=== PATIENT | male | born 1960 | race African-American/Black ===

== ENCOUNTER 2017-04-27 09:43 | Inpatient (IN) | payer OTHER ==
[~2017-04-27] VITALS: Ht 165.1 cm; Wt 95.2 kg
[2017-04-27] VITALS (13 sets, daily range): BP systolic 66–242; BP diastolic 38–163
--- NOTE | ~2017-04-27 | EKG ---
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 : 1960 Requested By: Lc Garcia Order Number: [id number] MD: Geovanny Napoles Measurements Intervals [place] Rate: 122 P: 52 [place]: 166 QRS: 36 QRSD: 76 T: 22 QT: 312 QTc: 445 Interpretive Statements Sinus tachycardia Otherwise no significant abnormality Compared to ECG 08/09/2016 10:22:02 No significant changes Electronically Signed On 04-27-2017 18:26:51 VIDEO TAPE TRANSFERRER by Geovanny Napoles [email or web address] <ELECTRONICALLY SIGNED> By: Geovanny Napoles MD, [facility] 04/27/17 1826 D: 01940 0 Geovanny Napoles MD, FACC /EPI
--- NOTE | ~2017-04-27 | EKG ---
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 KEYES : 1960 Requested By: Kalin Farias Order Number: [id number] MD: Geovanny Napoles Measurements Intervals [place] Rate: 126 P: 45 [place]: 160 QRS: 80 QRSD: 72 T: 26 QT: 295 QTc: 428 Interpretive Statements Sinus tachycardia Poor R wave progression Compared to ECG 08/09/2016 10:22:02 Premature ventricular complexes are no longer present Electronically Signed On 04-27-2017 18:29:25 MANAGEMENT [employer] by Geovanny Napoles [email or web address] <ELECTRONICALLY SIGNED> By: Geovanny Napoles MD, [facility] 04/27/17 1829 1307 06 Geovanny Napoles MD, [facility] /EPI
--- NOTE | ~2017-04-27 | EKG ---
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 04/27/17 1827 1018 1018 Geovanny Napoles MD, [facility] /EPI
--- NOTE | ~2017-04-27 | EKG ---
[address] [place] [address] ELECTROCARDIOGRAM REPORT Name: YEHUDA CHEUNG Room #: 205-P ADM IN M.R.#: [id number] Admission: 04/27/17 Attend Phys: Kalin Farias DO Discharge: Date of : 60 Report #: [id number] THIS REPORT FOR: //name// [facility] Test Date: 2017-04-27 Test Time: 16:02:00 Pat Name: YEHUDA CHEUNG Department: Room: 205 P Gender: M Professor Of Family Medicine: Wandy LOPEZ : 1960 Requested By: Esme Purcell Order Number: [id number] MD: Geovanny Napoles Measurements Intervals [place] Rate: 131 P: 5 [place]: 144 QRS: 90 QRSD: 66 T: 5 QT: 298 QTc: 440 Interpretive Statements Sinus tachycardia Abnormal R-wave progression, late transition Compared to ECG 08/09/2016 10:22:02 No significant changes Electronically Signed On 04-27-2017 18:29:52 SLURRY BLENDER by Geovanny Napoles [email or web address] <ELECTRONICALLY SIGNED> By: Geovanny Napoles MD, [facility] 04/27/17 1829 160 160 Geovanny Napoles MD, [facility] /EPI
--- NOTE | ~2017-04-27 | 2DMMODE ---
[facility] [address] [place] [address] 2 D/M-MODE ECHOCARDIOGRAM Name: YEHUDA CHEUNG Room #: 205-P ADM IN M.R.#: [id number] Admission: 04/27/17 Attend Phys: Kalin Farias, Discharge: Date of : 60 Date of Service: 04/27/17 1503 Report #: [id number] THIS REPORT FOR: //name// APPROVED REPORT Study performed: 04/27/2017 13:07:07 EXAM: Comprehensive 2D, Doppler, and color-flow Echocardiogram Patient Location: Echo lab Room #: 205 Status: routine BSA: 2.04 HR: 122 bpm BP: 182/100 mmHg Rhythm: Tachycardia Other Information Study Quality: Adequate Indications Chest Pain Hypertension/HDD 2D Dimensions RVDd: 38.62 mm LVEF(%): 78.16 (>50%) IVSd: 12.48 (7-11mm) LVOT Diam: 20.39 (18-24mm) LVDd: 35.91 mm PWd: 13.20 (7-11mm) Ascending Ao: 34.17 (22-36mm) LVDs: 19.43 (25-40mm) Aortic Root: 31.22 mm Lindsay's LVEF: 78.16 % Volumes Left Atrial Volume (Systole) Single Plane 4CH: 30.02 mL Single Plane 2CH: 23.74 mL LA ESV Index: 15.00 mL/m2 Aortic Valve AoV Peak Khari.: 1.56 m/s AO Peak Gr.: 9.67 mmHg LVOT Max P.60 mmHg LVOT Max V: 1.28 m/s DEVYN Vmax: 2.70 cm2 Pulmonary Valve PV Peak Khari.: 1.21 m/s PV Peak Gr.: 5.90 mmHg [facility] [email or web address] [address] 2 D/M-MODE ECHOCARDIOGRAM Name: YEHUDA CHEUNG Room #: 205- ADM IN M.R.#: [id number] Admission: 04/27/17 Attend Phys: Kalin Farias, Discharge: Date of : 60 Date of Service: 04/27/17 1503 Report #: [id number] Left Ventricle The left ventricle is normal size. There is normal LV segmental wall motion. Mild concentric left ventricular hypertrophy. Left ventricular systolic function is hyperdynamic. Moderate left ventricle gradient (40mmHg) likely due to hyperdynamic function. LVEF is >70%. This study is not technically sufficient to allow evaluation of the LV diastolic function. Right Ventricle The right ventricle is normal size. The right ventricular systolic function is normal. Atria The left atrium size is normal. The right atrium size is normal. Aortic Valve Aortic valve is calcified. No aortic regurgitation is present. There is no aortic valvular stenosis. Mitral Valve The mitral valve is normal in structure. There is no mitral valve regurgitation noted. No evidence of mitral valve stenosis. Tricuspid Valve The tricuspid valve is normal in structure. Unable to assess the PAP due to little to no tricuspid regurgitation. Pulmonic Valve Pulmonic valve is not well visualized. There is no pulmonic valvular regurgitation. Great Vessels The aortic root is normal in size. IVC is normal in size and collapses >50% with inspiration. Pericardium There is no pericardial effusion. <Conclusion> Left ventricular systolic function is hyperdynamic. Moderate left ventricle gradient (40mmHg) likely due to hyperdynamic function, underfilled ventricle. There is normal LV segmental wall motion. LVEF >70%. Aortic valve is calcified. No aortic valvular stenosis or [address] [address] 2 D/M-MODE ECHOCARDIOGRAM Name: YEHUDA CHEUNG Room #: 205-P [facility]#: [id number] Admission: 04/27/17 Attend Phys: Kalin Farias, Discharge: Date of : 60 Date of Service: 04/27/17 1503 Report #: [id number] insufficiency. The mitral valve is normal in structure. No mitral valve regurgitation noted. Pulmonary artery pressure could not be reliably ascertained There is no pericardial effusion. <ELECTRONICALLY SIGNED> By: Geovanny Napoles MD, [facility] 04/27/17 1503 1503 1503 Geovanny Napoles MD, [facility] /INF
[~2017-04-27 09:43] MED LIST: NORVASC10 MG PO; ZESTRIL40 MG PO
[2017-04-27 10:01] LABS: ABSOLUTE NEUTROPHILS 2.2 thou/uL (1.4-8.2); BASOPHILS 0.4 % (0.0-2.0); EOSINOPHILS 2.3 % (0.0-3.0); HEMATOCRIT 39.8 % (42.0-52.0); HEMOGLOBIN 13.2 gm/dL (14.0-18.0); LYMPHOCYTES 33.2 % (24.0-44.0); MCH 32.6 pg (26.0-34.0); MCHC 33.3 g/dL (28.0-37.0); MCV 97.9 fL (80.0-100.0); MONOCYTES 10.7 % (1.0-8.0); PLATELET COUNT 160 thou/uL (150-400); POLYS 53.4 % (36.0-66.0); RBC 4.06 mil/uL (4.50-6.00); RDW 15.8 % (10.5-14.5); WBC 4.1 thou/uL (4.0-11.0)
[2017-04-27 10:07] LABS: CALCIUM 9.3 mg/dL (8.5-10.1); CREATININE 1.5 mg/dL (0.7-1.3); POTASSIUM 4.1 mmol/L (3.5-5.1)
[2017-04-27 10:14] LABS: D-DIMER 0.37 ug/mLFEU (0.19-0.50); PROTIME 10.4 Seconds (9.3-11.4)
[2017-04-27 10:16] LABS: ALBUMIN 4.3 g/dL (3.4-5.0); TOTAL BILIRUBIN 0.5 mg/dL (<0.1-1.0); TOTAL PROTEIN 8.1 g/dL (6.4-8.2); TROPONIN-I 0.18 ng/mL (<0.06)
[2017-04-27 11:33] LABS: URINE BILIRUBIN NEGATIVE (Negative); URINE BLOOD NEGATIVE (Negative); URINE CLARITY CLEAR; URINE COLOR YELLOW; URINE GLUCOSE-RANDOM* NEGATIVE (Negative); URINE KETONES NEGATIVE (Negative); URINE LEUKOCYTES NEGATIVE (Negative); URINE NITRITE NEGATIVE (Negative); URINE PROTEIN (DIPSTICK) 2+ (Negative); URINE SPECIFIC GRAVITY >= 1.030 (1.005-1.035); URINE UROBILINOGEN 0.2 E.U./dl (0.2-1.0)
[2017-04-27 11:51] LABS: SQUAMOUS 0-3 Few /LPF (0-3); URINE RBC 0-2 Rare /HPF (0-2); URINE WBC 0-5 Rare /HPF (0-5)
[2017-04-27 11:52] LABS: CRYSTALS None Seen /LPF (None Seen); HYALINE CASTS 0-3 Few /LPF (None Seen)
[2017-04-27 11:56] LABS: BACTERIA 1-9 Few /HPF (None Seen)
[2017-04-27 12:58] LABS: PHOSPHORUS 2.9 mg/dL (2.5-4.9)
[2017-04-27 13:00] LABS: MAGNESIUM 0.9 mg/dL (1.8-2.4)
[2017-04-27 15:59] LABS: CHOLESTEROL 230 mg/dL (<200); HDL CHOLESTEROL 115 mg/dL (>40); LDL CHOLESTEROL 103 mg/dL (<100); TRIGLYCERIDE 62 mg/dL (<150); VLDL 12 mg/dL (<40)
[2017-04-27 17:07] LABS: AMP/METHAMP Negative (Negative); BARBITURATES Negative (Negative); BENZODIAZEPINES Negative (Negative); COCAINE Negative (Negative); METHADONE Negative (Negative); OPIATES Negative (Negative); PCP Negative (Negative)
[2017-04-28] VITALS: BP 135/92
[2017-04-28 03:35] LABS: CHOLESTEROL 207 mg/dL (<200); HDL CHOLESTEROL 104 mg/dL (>40); LDL CHOLESTEROL 92 mg/dL (<100); TRIGLYCERIDE 59 mg/dL (<150); VLDL 12 mg/dL (<40)
[2017-04-28 03:49] LABS: SERUM ASSESSMENT Clear
[2017-04-28 03:58] VITALS: BP 155/103
[2017-04-28 04:59] VITALS: BP 142/96
[2017-04-28 05:12] LABS: GLYCOHEMOGLOBIN (HGB A1C) 5.4 % (4.8-5.6)
[2017-04-28 08:03] VITALS: BP 155/109
[2017-04-28 09:24] VITALS: BP 155/109
== END 2017-04-28 10:15 | disposition home or self-care (01) | DRG 281 ==
LOC: ER 09:43 → 2N 10:48 → ENTRNSPT 04-28 09:51 → EDTRNSPTSTS 04-28 09:53 → 2N 04-28 10:15
PROVIDERS: Family Medicine; Nurse Practitioner; Nurse Practitioner Adult Health; Physician Assistant
DX: I21.4 Non-ST elevation (NSTEMI) myocardial infarction (principal); I16.1 Hypertensive emergency; N17.9 Acute kidney failure, unspecified; F10.129 Alcohol abuse with intoxication, unspecified; I10 Essential (primary) hypertension; I16.0 Hypertensive urgency; E83.42 Hypomagnesemia; Z71.41 Alcohol abuse counseling and surveillance of alcoholic; Z91.14 Patient's other noncompliance with medication regimen
CPT/HCPCS: 10081